=== PATIENT | male | born 1985 | race Caucasian/White ===

== ENCOUNTER → 2020-05-31 13:28 | Outpatient (BNVA) | payer MEDICARE, MEDICAID, SELFPAY | PROVIDERS: Family Provider Family Medicine; PCP Family Medicine; Visit Provider Family Medicine | DX: Z13.6 Encounter for screening for cardiovascular disorders (principal); J44.9 Chronic obstructive pulmonary disease, unspecified; R60.0 Localized edema | CPT/HCPCS: 80053; 80061; 85025 ==

== ENCOUNTER → 2021-03-13 15:24 | Outpatient (BNVA) | payer MEDICARE, MEDICAID, SELFPAY | PROVIDERS: Family Provider Family Medicine; PCP Family Medicine; Visit Provider Podiatrist Foot & Ankle Surgery | DX: S92.002A Unspecified fracture of left calcaneus, initial encounter for closed fracture (principal); X58.XXXA Exposure to other specified factors, initial encounter; M79.672 Pain in left foot | CPT/HCPCS: 73610 ==

== ENCOUNTER → 2021-11-10 10:33 | Outpatient (BNVA) | payer MEDICARE, MEDICAID, SELFPAY | PROVIDERS: Family Provider Family Medicine; PCP Registered Nurse; Visit Provider Registered Nurse | DX: L02.91 Cutaneous abscess, unspecified (principal) | CPT/HCPCS: 87070; 87075; 87205 ==

== ENCOUNTER → 2021-11-21 11:16 | Outpatient (BNVA) | payer MEDICARE, MEDICAID, SELFPAY | PROVIDERS: Family Provider Family Medicine; PCP Registered Nurse; Visit Provider Registered Nurse | DX: Z11.52 Encounter for screening for COVID-19 (principal); Z20.822 Contact with and (suspected) exposure to COVID-19 | CPT/HCPCS: 87635 ==

== ENCOUNTER → 2021-11-24 16:21 | Outpatient (BNVA) | payer MEDICARE, MEDICAID, SELFPAY | PROVIDERS: Family Provider Family Medicine; PCP Registered Nurse; Visit Provider Registered Nurse | DX: J11.1 Influenza due to unidentified influenza virus with other respiratory manifestations (principal); J20.9 Acute bronchitis, unspecified; J21.9 Acute bronchiolitis, unspecified | CPT/HCPCS: 87400 ==

== ENCOUNTER → 2022-02-02 11:19 | Outpatient (BNVA) | payer MEDICARE, MEDICAID, SELFPAY | PROVIDERS: Family Provider Family Medicine; PCP Registered Nurse; Visit Provider Registered Nurse | DX: I10 Essential (primary) hypertension (principal); R06.02 Shortness of breath; R07.89 Other chest pain; F17.219 Nicotine dependence, cigarettes, with unspecified nicotine-induced disorders | CPT/HCPCS: 80053; 80061; 85025; 86140 ==

== ENCOUNTER 2022-02-18 12:12 | Outpatient (CLI) | payer MEDICARE, MEDICAID, SELFPAY ==
[2022-02-18 12:29] VITALS: BMI 36.6
--- NOTE | 2022-02-18 12:31 | ECG_ITS ---
[facility] Test Date: 2022-02-18 Pat Name: Johnny Jimenez Department: Room: Gender: Male Conference Services Manager: Chelo Maddox : 1985 Requested By: Yahir Waters Order Number: [id number] Guerra MD: Brittany Unger M.D. Interpretive Statements NAME OF STUDY: TREADMILL STRESS TEST INDICATION: Shortness of Breath htn, PROCEDURE: At the baseline, the patient's blood pressure was with a heart rate of. The baseline electrocardiogram showed normal sinus rhythm with normal ST-Ts. Probably progression. The patient exercised for 7 minutes on a standard Edmundo protocol. Patient attained a maximum heart rate of 167 beats per minute(92% of the maximum predicted heart rate) with a blood pressure at the peak exercise of 216/116 mm Hg. The EKG at the peak exercise revealed no significant changes. Patient did not have any chest pain or any significant cardiac arrhythmias with the exercise During the recovery phase, there were no new changes. Patient is mainly complaining of shortness of breath with exercise Blood pressure at the end of the recovery phase was 172/117 mm Hg with a heart rate of 97 per minute. CONCLUSION: 1. Normal EKG response to treadmill exercise 2. No exercise-induced chest pain or cardiac arrhythmia 3. Fair exercise tolerance, attained a maximum of 10.2 METs Electronically Signed On 02-21-2022 0:01:30 CDT by Brittany Unger M.D. [email or web address]
[2022-02-18 13:01] VITALS: BP 172/117; PULSE 95
== END 2022-02-18 12:13 | disposition home or self-care (01) ==
LOC: CDL 12:13
PROVIDERS: Family Provider Family Medicine; PCP Registered Nurse; Visit Provider Registered Nurse
DX: R06.02 Shortness of breath (principal); I10 Essential (primary) hypertension
CPT/HCPCS: 93017

== ENCOUNTER → 2023-02-16 11:46 | Outpatient (BNVA) | payer MEDICARE, MEDICAID, SELFPAY | PROVIDERS: Family Provider Family Medicine; PCP Registered Nurse; Visit Provider Registered Nurse | DX: J44.9 Chronic obstructive pulmonary disease, unspecified (principal); I10 Essential (primary) hypertension; M25.562 Pain in left knee | CPT/HCPCS: 80053; 80061; 85025 ==

== ENCOUNTER → 2023-03-10 11:03 | Outpatient (BNVA) | payer MEDICARE, MEDICAID, SELFPAY | PROVIDERS: Family Provider Family Medicine; PCP Registered Nurse; Referring Provider Registered Nurse; Visit Provider Nurse Practitioner Family | DX: M25.562 Pain in left knee (principal) | CPT/HCPCS: 73560; 73565; 86592; 99214 ==

== ENCOUNTER 2023-03-30 14:17 | Outpatient (CLI) | payer MEDICARE, MEDICAID, SELFPAY ==
--- NOTE | 2023-03-30 14:30 | MR_ITS ---
WS: [id number] MRI LEFT KNEE NONCONTRAST TECHNIQUE: Axial PD, coronal PD fat sat, coronal PD, sagittal PD, and sagittal PD fat-sat images obta ined. CLINICAL INFORMATION: pain COMPARISON: MRI 2016 FINDINGS: Prior postoperative changes intramedullary azeem and screw fixation involving the proximal tibia. Chron ic complete tear of the ACL. PCL appears intact. Moderate tricompartmental arthritis with small joint effusion. Distal quadriceps and patella tendons are intact. Moderate chondromalacia patella. Normal medial and lateral patellar r etinaculum. Medial and lateral collateral ligaments are intact. Normal popliteal fossa. Chronic thinning of the medial and lateral meniscus. Tears involving the posterior horn medial menisc us and posterior horn lateral meniscus with blunting. This is similar to the prior examination with m ore chronic meniscal thinning today. Grade III chondromalacia medial and lateral joint compartments. New complex bucket-handle tear of the anterior horn medial meniscus extending to the meniscal root. I nner meniscus displaced along the intercondylar notch. Tiny popliteal cyst. Moderate chondromalacia patella. Medial and lateral patellar retinacula appear i ntact. MR/MR knee LT wo con* [id number] IMPRESSION: 1. Moderate tricompartmental arthritis with prior intramedullary azeem and screw fixation involving the tibia. 2. High-grade complete tear of the ACL. No normal ACL fibers visualized. This has a chronic appearance. 3. PCL appears intact. 4. New complex bucket-handle tear of the anterior horn medial meniscus extendi ng to the meniscal root. Inner meniscus displaced along the intercondylar notch . 5. Chronic Similar-appearing tears with blunting involving the posterior horn medial and lateral meniscus. 6. Moderate chondromalacia patella. 7. Grade III chondromalacia medial and lateral joint compartments has progress ed. 8. Small joint effusion. Outbridge grading: grade III: partial-thickness cartilage loss with focal ulcer ation
== END 2023-03-30 14:18 | disposition home or self-care (01) ==
PROVIDERS: PCP Registered Nurse; Visit Provider Nurse Practitioner Family
DX: M17.12 Unilateral primary osteoarthritis, left knee (principal); S83.512A Sprain of anterior cruciate ligament of left knee, initial encounter; S83.212A Bucket-handle tear of medial meniscus, current injury, left knee, initial encounter; X58.XXXA Exposure to other specified factors, initial encounter; M22.42 Chondromalacia patellae, left knee; M25.462 Effusion, left knee
CPT/HCPCS: 73721; 86592

== ENCOUNTER → 2023-04-13 07:54 | Outpatient (BNVA) | payer MEDICARE, MEDICAID, SELFPAY | PROVIDERS: PCP Registered Nurse; Visit Provider Nurse Practitioner Family | DX: M23.304 Other meniscus derangements, unspecified medial meniscus, left knee (principal); M17.32 Unilateral post-traumatic osteoarthritis, left knee | CPT/HCPCS: 20610; 99214; J1100; J2795; J3301 ==

== ENCOUNTER → 2023-08-02 09:23 | Outpatient (BNVA) | payer MEDICARE, MEDICAID, SELFPAY | PROVIDERS: PCP Registered Nurse; Visit Provider Registered Nurse | DX: Z00.00 Encounter for general adult medical examination without abnormal findings (principal); E78.5 Hyperlipidemia, unspecified; Z12.5 Encounter for screening for malignant neoplasm of prostate; I10 Essential (primary) hypertension; J44.9 Chronic obstructive pulmonary disease, unspecified; F17.219 Nicotine dependence, cigarettes, with unspecified nicotine-induced disorders; Z71.3 Dietary counseling and surveillance; Z71.82 Exercise counseling; Z12.2 Encounter for screening for malignant neoplasm of respiratory organs | CPT/HCPCS: 80053; 80061; 83036; 85025; G0103 ==

== ENCOUNTER → 2024-01-14 11:14 | Outpatient (BNVA) | payer MEDICARE, MEDICAID, SELFPAY | PROVIDERS: PCP Registered Nurse; Visit Provider Specialist | DX: M17.32 Unilateral post-traumatic osteoarthritis, left knee (principal); M23.304 Other meniscus derangements, unspecified medial meniscus, left knee; Z96.9 Presence of functional implant, unspecified | CPT/HCPCS: 20610; 73560; 73565; 99204 ==

== ENCOUNTER 2024-03-17 08:06 | Outpatient (CLI) | payer MEDICARE, MEDICAID, SELFPAY ==
--- NOTE | 2024-03-17 08:13 | MR_ITS ---
WS: [id number] MRI LEFT KNEE HISTORY: KNEE PAIN/OSTEOARTHRITIS/DERANGEMENT OF MEDIAL MENISCUS COMPARISON: Radiograph 01/14/2024 and prior MRI 03/30/2023 Anterior cruciate ligament: Very small caliber ACL is identified. There is a chronic tear with contin ued scarring and gliosis of the ACL. Posterior cruciate ligament: Intact. Medial collateral ligament: Intact. Posterior lateral corner structures: Intact. Medial menisci: Small caliber anterior and posterior horns. Rounded contour of the anterior horn with in adjacent similar meniscal signal towards the intercondylar notch. This may be a loose meniscal fra gment or bucket-handle tear as previously described. There is abnormal signal throughout the anterior horn consistent with radial tears. Horizontal tear in the posterior horn. Very similar configuration to the prior examination. Lateral meniscus: Complex tear in the posterior horn. Blunting of the free edge of the posterior horn with additional signal extending to the superior and inferior articular surfaces. There is an additi onal tear in the anterior horn extending to the inferior articular surface. Anterior horn meniscal te ar appears progressed. Extensor mechanism: Distal quadriceps tendon and patellar tendons are intact. Fluid and soft tissue: No significant joint effusion. Small Stubbs's cyst is reidentified. Osseous and articular structures: Patellofemoral compartment: Negative. No significant loss of cartilage. Medial compartment: Moderate narrowing the medial compartment with loss of cartilage and cortical irr egularity. Lateral compartment: Moderate narrowing of the lateral compartment with moderate chondromalacia. Loss of cartilage. No marrow edema. Prior ORIF in the proximal tibia. MR/MR knee LT wo con* [id number] IMPRESSION: 1. Advanced degenerative changes involving the medial and lateral compartments of the knee. Minimal progression since 03/30/2023. 2. Known chronic ACL tear. 3. Small caliber anterior and posterior horns of the medial meniscus with poss ible loose body or bucket handle tear anteriorly. Additional tear to the intra- articular surface of the posterior horn. 4. Complex tears involving both the anterior and posterior horns of the later al meniscus. Mild progression since the prior study. 5. Moderate degenerative changes involve the medial and lateral compartment wi th joint space narrowing, osteophytes and continued loss of cartilage. 6. Small Stubbs's cyst.
== END 2024-03-17 08:07 | disposition home or self-care (01) ==
LOC: RAD 08:06
PROVIDERS: PCP Registered Nurse; Visit Provider Specialist
DX: M17.32 Unilateral post-traumatic osteoarthritis, left knee (principal); M23.304 Other meniscus derangements, unspecified medial meniscus, left knee; M23.322 Other meniscus derangements, posterior horn of medial meniscus, left knee; M23.301 Other meniscus derangements, unspecified lateral meniscus, left knee; M25.861 Other specified joint disorders, right knee
CPT/HCPCS: 73721

== ENCOUNTER → 2024-04-28 10:09 | Outpatient (BNVA) | payer MEDICARE, MEDICAID, SELFPAY | PROVIDERS: PCP Registered Nurse; Visit Provider Registered Nurse | DX: I10 Essential (primary) hypertension (principal) | CPT/HCPCS: 80053 ==

== ENCOUNTER → 2024-07-24 10:03 | Outpatient (BNVA) | payer MEDICARE, MEDICAID, SELFPAY | PROVIDERS: PCP Registered Nurse; Visit Provider Specialist | DX: M17.32 Unilateral post-traumatic osteoarthritis, left knee (principal); M23.304 Other meniscus derangements, unspecified medial meniscus, left knee | CPT/HCPCS: 20610; 73560; 73565; 99214 ==

== ENCOUNTER → 2024-10-06 11:16 | Outpatient (BNVA) | payer MEDICARE, MEDICAID, SELFPAY | PROVIDERS: PCP Registered Nurse; Visit Provider Internal Medicine Cardiovascular Disease | DX: R07.9 Chest pain, unspecified (principal) | CPT/HCPCS: 93005 ==

== ENCOUNTER → 2024-12-11 13:40 | Outpatient (BNVA) | payer MEDICARE, MEDICAID, SELFPAY | PROVIDERS: PCP Registered Nurse; Visit Provider Registered Nurse | DX: J11.1 Influenza due to unidentified influenza virus with other respiratory manifestations (principal) | CPT/HCPCS: 87400 ==

== ENCOUNTER 2024-12-18 09:54 | Outpatient (CLI) | payer MEDICARE, MEDICAID, SELFPAY | END 2024-12-18 09:55 | disposition home or self-care (01) | LOC: SLEEP 09:55 | PROVIDERS: PCP Registered Nurse; Visit Provider Registered Nurse | DX: G47.33 Obstructive sleep apnea (adult) (pediatric) (principal) | CPT/HCPCS: G0399 ==

== ENCOUNTER → 2025-02-20 15:05 | Outpatient (BNVA) | payer MEDICARE, MEDICAID, SELFPAY | PROVIDERS: PCP Registered Nurse; Visit Provider Internal Medicine Cardiovascular Disease | DX: R07.9 Chest pain, unspecified (principal) | CPT/HCPCS: 93005 ==